=== PATIENT | female | born 1970 | race Caucasian/White ===

== ENCOUNTER 2016-06-06 15:45 | Outpatient (CLI) | payer OTHER ==
[2016-06-06 16:35] LABS: ALT (SGPT) 30 U/L (0-55); AST (SGOT) 21 U/L (5-34); Alkaline Phosphatase 102 U/L (40-150); Bilirubin, Direct 0.2 mg/dL (0.1-0.3); Bilirubin, Total 0.4 mg/dL (0.2-1.2); LDL Cholesterol, Calculated 190 mg/dL; Protein, Total 7.2 g/dL (6.0-8.3)
== END 2016-06-06 15:46 | disposition home or self-care (01) ==
LOC: HPCALD 15:45
PROVIDERS: ATTEND Family Medicine
DX: E03.9 Hypothyroidism, unspecified (principal); E78.2 Mixed hyperlipidemia
CPT/HCPCS: 36415; 80061; 80076; 84443

== ENCOUNTER 2022-10-30 22:25 | Emergency (ER) | payer SELFPAY ==
[2022-10-30] MEDS ORDERED: Cephalexin 250 MG CAP ONE (22:55)
== END 2022-10-30 23:11 | disposition home or self-care (01) ==
LOC: BURERS 22:25
DX: L03.312 Cellulitis of back [any part except buttock and flank] (principal); I10 Essential (primary) hypertension; E03.9 Hypothyroidism, unspecified; F17.210 Nicotine dependence, cigarettes, uncomplicated
CPT/HCPCS: 93005

== ENCOUNTER 2024-12-15 09:38 | Outpatient (CLI) | payer BC | END 2024-12-15 09:39 | disposition home or self-care (01) | LOC: BURRAD 09:38 | PROVIDERS: ATTEND Family Medicine | DX: M25.562 Pain in left knee (principal) ==